=== PATIENT | female | born 1990 | race Caucasian/White ===

== ENCOUNTER → 2022-03-07 | Outpatient (CLI) | payer OTHER ==
[~2022-03-07] MED LIST: ACET500C PO; MOTR200T44 PO
== END ==
LOC: M RAD 13:28
PROVIDERS: ATTEND Obstetrics & Gynecology
DX: Z97.5 Presence of (intrauterine) contraceptive device (principal)

== ENCOUNTER 2022-04-10 22:35 | Emergency (ER) | payer OTHER ==
[~2022-04-10] VITALS: Ht 167.6 cm; Wt 115.4 kg
[2022-04-10 23:24] LABS: BASO # 0.1 10^3/uL (0.0-0.2); BASO % 1.1 % (0.0-1.0); EOS # 0.2 10^3/uL (0.0-0.5); EOS % 2.4 % (0.0-3.0); HEMATOCRIT 42.5 % (36.0-47.0); HEMOGLOBIN 14.5 g/dl (12.0-15.5); LYMPH # 2.6 10^3/uL (1.5-5.0); LYMPH % 31.2 % (24.0-44.0); MEAN CORPUSCULAR HEMOGLOBIN 28.7 pg (27.0-33.0); MEAN CORPUSCULAR HGB CONC 34.1 g/dl (32.0-36.5); MEAN CORPUSCULAR VOLUME 84.2 fl (80.0-96.0); MONO # 0.8 10^3/uL (0.0-0.8); NEUTROPHILS # 4.7 10^3/uL (1.5-8.5); NEUTROPHILS % 56.2 % (36.0-66.0); PLATELET COUNT, AUTOMATED 239 10^3/uL (150-450); RED BLOOD COUNT 5.05 10^6/uL (4.00-5.40); WHITE BLOOD COUNT 8.4 10^3/uL (4.0-10.0)
[2022-04-11 00:25] LABS: HCG, SERUM QUALITATIVE NEGATIVE (NEGATIVE)
[2022-04-11 00:37] LABS: CK-MB VALUE MASS < 1.0 NG/ML (<3.6)
[2022-04-11 00:38] LABS: LIPASE 57 U/L (12-53)
[2022-04-11 00:40] LABS: ALBUMIN 4.2 G/DL (3.2-5.2); ALKALINE PHOSPHATASE 81 U/L (46-116); ALT/SGPT 32 U/L (7.0-40); AST/SGOT 14 U/L (<34); BILIRUBIN,DIRECT < 0.1 MG/DL (<0.4); BILIRUBIN,TOTAL 0.2 MG/DL (0.3-1.2); BLOOD UREA NITROGEN 15 MG/DL (9-23); CALCIUM LEVEL 8.9 MG/DL (8.5-10.1); CARBON DIOXIDE LEVEL 25 MMOL/L (20-31); CHLORIDE LEVEL 108 MMOL/L (98-107); CREATININE FOR GFR 0.82 MG/DL (0.55-1.30); GLOMERULAR FILTRATION RATE > 60.0 (>60); GLUCOSE, FASTING 85 MG/DL (60-100); POTASSIUM SERUM 4.1 MMOL/L (3.5-5.1); SODIUM LEVEL 141 MMOL/L (136-145); TOTAL PROTEIN 7.4 G/DL (5.7-8.2)
[2022-04-11 00:41] LABS: THYROID STIMULATING HORMONE 5.003 uIU/ML (0.55-4.78)
[2022-04-11 00:42] LABS: FREE T4 1.01 NG/DL (0.89-1.76)
[2022-04-11 00:50] LABS: CPK CREATINE PHOSPHOKINASE 107 U/L (34-145); MB/CK RELATIVE INDEX 0.93 (< OR =4)
[2022-04-11 03:16] LABS: CK-MB VALUE MASS < 1.0 NG/ML (<3.6)
[2022-04-11 03:18] LABS: CPK CREATINE PHOSPHOKINASE 103 U/L (34-145); MB/CK RELATIVE INDEX 0.97 (< OR =4)
[2022-04-11] MEDS ORDERED: CELE40TA PO (07:02)
[2022-04-11] MEDS ORDERED: VITAMI (07:03)
[2022-04-11] MEDS ORDERED: vitamin d (07:03)
[2022-04-11] MEDS ORDERED: MULTTAB57 PO (07:04)
[2022-04-11] MEDS ORDERED: SUCR1TA PO (07:32)
[2022-04-11] MEDS ORDERED: OMEP40CA4 PO (07:32)
[2022-04-11 07:45] VITALS: BP 109/66
== END 2022-04-11 07:54 | disposition home or self-care (01) ==
LOC: M ED 22:35
DX: R07.89 Other chest pain (principal); Z98.84 Bariatric surgery status; Z90.49 Acquired absence of other specified parts of digestive tract; Z79.899 Other long term (current) drug therapy

== ENCOUNTER 2022-05-16 11:56 | Day surgery (SDC) | payer OTHER ==
[~2022-05-16] VITALS: Ht 167.6 cm; Wt 114.5 kg
[~2022-05-16 11:56] MED LIST changes: +ACETAMINOPHEN *IV* 1,000 MG IV ONE; +CELE40TA PO; +LIDOCAINE 2% 100MG/5ML SDV (FOR ANES.) As Ordered ONE; +MIDAZOLAM INJ 2MG/2ML VIAL As Ordered ONE; +MULTTAB57 PO; +OMEP40CA4 PO; +SUCR1TA PO; +VITA100093 PO; +VITAMI; +VITMTA PO; +fentaNYL 100 MCG/2 ML INJECTION As Ordered ONE; +propofoL 200 MG/20 ML VIAL As Ordered ONE; +vitamin d
[2022-05-16] MEDS ORDERED: LR 1,000 ML IV SCH (12:15)
[2022-05-16 12:50] LABS: HEMATOCRIT 44.9 % (36.0-47.0); HEMOGLOBIN 15.6 g/dl (12.0-15.5); MEAN CORPUSCULAR HEMOGLOBIN 29.2 pg (27.0-33.0); MEAN CORPUSCULAR HGB CONC 34.7 g/dl (32.0-36.5); MEAN CORPUSCULAR VOLUME 84.1 fl (80.0-96.0); PLATELET COUNT, AUTOMATED 263 10^3/uL (150-450); RED BLOOD COUNT 5.34 10^6/uL (4.00-5.40); WHITE BLOOD COUNT 6.9 10^3/uL (4.0-10.0)
[2022-05-16] MEDS ORDERED: LIDOCAINE 1% SDV 30ML VIAL As Ordered ONE (14:38)
[2022-05-16] MEDS ORDERED: KETOROLAC 60MG 2ML VIAL As Ordered ONE (15:18)
[2022-05-16] MEDS ORDERED: ONDANSETRON 4MG 2ML VIAL As Ordered ONE (15:18)
[2022-05-16] MEDS ORDERED: oxyCODONE 5MG TAB PO PRN (15:30)
[2022-05-16] MEDS ORDERED: MORPHINE 2 MG/ML 1ML VIAL IV PRN (15:30)
[2022-05-16] MEDS ORDERED: fentaNYL 100 MCG/2 ML INJECTION IV PRN (15:30)
[2022-05-16] MEDS ORDERED: ONDANSETRON 4MG 2ML VIAL IV PRN (15:30)
[2022-05-16 16:30] VITALS: BP 141/80
== END 2022-05-16 16:50 | disposition home or self-care (01) ==
LOC: M SDC 11:56
PROVIDERS: ATTEND Obstetrics & Gynecology
DX: T83.32XA Displacement of intrauterine contraceptive device, initial encounter (principal); Z30.432 Encounter for removal of intrauterine contraceptive device; K21.9 Gastro-esophageal reflux disease without esophagitis; F41.9 Anxiety disorder, unspecified; F32.A Depression, unspecified; L71.9 Rosacea, unspecified; Z98.84 Bariatric surgery status; Z79.899 Other long term (current) drug therapy; Z88.8 Allergy status to other drugs, medicaments and biological substances
CPT/HCPCS: 36415; 58301; 81025; 85027; 86850; 86900; 86901; 88300; J1100; J1885; J2250; J2405; J3010

== ENCOUNTER → 2022-07-16 | Outpatient (CLI) | payer OTHER ==
[~2022-07-16] MED LIST changes: -ACETAMINOPHEN *IV* 1,000 MG IV ONE; -LIDOCAINE 2% 100MG/5ML SDV (FOR ANES.) As Ordered ONE; -MIDAZOLAM INJ 2MG/2ML VIAL As Ordered ONE; -fentaNYL 100 MCG/2 ML INJECTION As Ordered ONE; -propofoL 200 MG/20 ML VIAL As Ordered ONE
== END ==
LOC: M RAD 10:53
PROVIDERS: ATTEND Physician Assistant Medical
DX: M54.2 Cervicalgia (principal)

== ENCOUNTER → 2023-04-10 | Outpatient (REF) | payer OTHER | LOC: M LAB REF 21:18 | PROVIDERS: ATTEND Physician Assistant | DX: J02.9 Acute pharyngitis, unspecified (principal) ==